=== PATIENT | female | born 1970 | race Hispanic/Latino ===

== ENCOUNTER 2021-10-26 13:22 | Outpatient (CLI) | payer BC | END 2021-10-26 13:23 | disposition home or self-care (01) | LOC: CSHMRI 13:22 → CSHSPEC 13:23 | PROVIDERS: ATTEND Family Medicine | DX: M54.16 Radiculopathy, lumbar region (principal); Z95.0 Presence of cardiac pacemaker; M47.816 Spondylosis without myelopathy or radiculopathy, lumbar region | CPT/HCPCS: 71045; 72148 ==

== ENCOUNTER 2022-03-22 13:10 | Outpatient (CLI) | payer BC | END 2022-03-22 13:11 | disposition home or self-care (01) | LOC: CSHSPEC 13:10 | PROVIDERS: ATTEND Orthopaedic Surgery | DX: M47.22 Other spondylosis with radiculopathy, cervical region (principal) | CPT/HCPCS: 71045; 72141 ==